=== PATIENT | male | born 1995 | race African-American/Black ===

== ENCOUNTER 2024-01-15 20:35 | Emergency (ER) | payer OTHER, SELFPAY ==
[2024-01-15 20:43] VITALS: BP 133/88
--- NOTE | 2024-01-15 20:57 | ED.GENMED ---
History of Present Illness
General
Chief Complaint: Blood and Body Fluid Exposure
Time Seen by Provider: 01/15/24 20:56
Travel History
Have you had any contact with someone who has COVID-19?: No
Do you have any symptoms of coronavirus? Fever > 100 degrees, chills, cough, shortness of breath, sore throat, loss of taste or smell, muscle aches, or headache?: No
History of Present Illness
History of Present Illness:
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 He describes the object as the inside of a pen which was attached to a sharp object that he suspects was used for tattooing. There
was no definite blood noted.
EXAM:
GENERAL: Well appearing in no distress
HEENT: Moist oral mucosa
NEUROLOGIC: Excellent strength all extremities, no coordination deficits
PSYCHIATRIC: Appropriate mental status, normal insight and judgement
EXTREMITIES: Nontender, no edema, moves all extremities equally
SKIN: Very small puncture lesion noted to the volar aspect of the distal right second finger
TIME OF INITIAL ENCOUNTER: 9:10 PM
NUMBER AND COMPLEXITY OF PROBLEMS ADDRESSED AT THE ENCOUNTER
� Chronic conditions affecting care: Denies any significant past medical history
� Acute Exacerbation and/or Progression of Chronic Illness: This is an acute problem
� Differential Diagnosis includes: Need for HIV prophylaxis unlikely, low suspicion for true body fluid exposure
AMOUNT AND/OR COMPLEXITY OF DATA TO BE REVIEWED AND ANALYZED
� I performed an independent evaluation of and my interpretation is:
EKG:
CT:
X-rays:
Laboratory Studies: HIV/hepatitis panel pending
Other:
� Review of other/old records: No old records available for review
� Clinical information was obtained by an independent historian:
� Prescriptions/Medications Considered but not given: Considered/offered postexposure prophylaxis however this appears to be an extremely low risk situation. This was merely a sharp object that he struck his finger on however he
does report that it may have been used for tattooing purposes. There is no definite source patient to test.
� Further testing considered but not performed:
RISK OF COMPLICATIONS AND/OR MORBIDITY OR MORTALITY OF PATIENT MANAGEMENT
� Social determinants of health affecting care: Lives at home, Works at [employer]
� Discussion with other providers:
� Escalation of care including admission/observation vs risk of discharge considered: Baseline hepatitis/HIV testing obtained. Will hold off on HIV prophylaxis. Tetanus status updated.
Phy Exam
Physical Exam
Physical Exam:
See HPI
Course
Orders/Labs/Results
Orders:
Orders
01/15/24 21:04
Pt has had a significant HIV exposure? Routine
HIV Exposure is significant?: No
01/15/24 21:07
HIV Combo Urgent
Hepatitis B Surface Antibody Urgent
Hepatitis B Surface Antigen Urgent
Hepatitis C Antibody Urgent
01/15/24 21:16
Tetanus/Diphth/Acelpertussis [Adacel] 0.5 ml IM .ONCE ONE
Vital Signs
Initial and Last Documented VS:
Initial Vital Signs
Temp Pulse Resp BP Pulse Ox
98.7 F 64 18 133/88 97
01/15/24 20:43 01/15/24 20:43 01/15/24 20:43 01/15/24 20:43 01/15/24 20:43
Last Documented Vital Signs
Temp Pulse Resp BP Pulse Ox
98.7 F 64 18 133/88 97
01/15/24 20:43 01/15/24 20:43 01/15/24 20:43 01/15/24 20:43 01/15/24 20:43
*Critical Care Note
Total Time (30-74mins, 75-104mins- exclusive of procedures): Not Applicable
ED Attending Note
-
Portions of this chart may have been created with voice recognition software.� Occasional wrong word or��sound alike� substitutions may have occurred due to the inherent limitations of voice recognition software.
Discharge Plan
Departure
Patient Disposition: Home (Routine Discharge)
Date of Disposition: 01/15/24
Time of Disposition: 21:05
Patient with high blood pressure during this ER visit?: Yes
Discharge Problem:
Struck by sharp object
Instructions: Blood or body fluid exposure
Stand Alone Forms: Bl/Fluid Consent/Declination, Blood Body/Fluid Exposure
Activity Restrictions/Additional Instructions:
Based on the lack of any noted bloody contact, I recommend against postexposure prophylaxis for HIV. Baseline HIV and hepatitis testing is pending.
Interventions
Interventions:
*Risk Screen - Suicide Last Done: 01/15/24 20:43
*General Assessment Last Done: 01/15/24 20:43
*Neglect/Abuse Screening Last Done: 01/15/24 20:43
Discharge Date and Time
Print Language: BELARUSIAN
[2024-01-15] MEDS: ADACEL 0.5 ML IM (21:32)
[2024-01-15 22:04] LABS: Hepatitis B Surface Antigen Negative (Negative)
[2024-01-15 22:13] LABS: HIV Combo Negative (Negative)
[2024-01-15 23:21] LABS: Hepatitis B Surface Antibody Positive; Hepatitis C Antibody Negative (Negative)
== END 2024-01-15 21:58 | disposition home or self-care (01) ==
LOC: EMR 20:35
PROVIDERS: EMERGENCY PHYSICIAN Emergency Medicine; FAMILY PHYSICIAN Internal Medicine
DX: S61.230A Puncture wound without foreign body of right index finger without damage to nail, initial encounter (principal); Z77.21 Contact with and (suspected) exposure to potentially hazardous body fluids; W22.8XXA Striking against or struck by other objects, initial encounter; Y93.89 Activity, other specified; Y92.143 Cell of prison as the place of occurrence of the external cause; Y99.0 Civilian activity done for income or pay; R03.0 Elevated blood-pressure reading, without diagnosis of hypertension; Z23 Encounter for immunization
CPT/HCPCS: 99283; 90471; 86706; 86803; 87340; 87389; 90715